=== PATIENT | female | born 1955 | race Two or more races ===

== ENCOUNTER 2016-08-11 12:12 | Observation (INO) | payer OTHER ==
[2016-08-11] MEDS ORDERED: cloNIDine HCL 0.1 MG TAB PO ONE ×2 (12:45→17:45)
[2016-08-11] MEDS: SODIUM CHLORIDE 0.9% 1,000 ML IV ONE ×2 (17:55→19:23)
[2016-08-11 20:00] LABS: Basophils # (auto) 0 uL; Basophils % (auto) 0.3 % (0.0-2.0); Eosinophils # (auto) 0.2 uL; Hemoglobin 14.8 g/dL (12.2-16.2); Lymphocytes # (auto) 2.4 uL; Lymphocytes % (auto) 19.7 % (10.0-50.0); Mean Corpuscular Hemoglobin 27.3 pg (28.0-32.0); Mean Corpuscular Hgb Conc. 33.5 g/dL (32.0-36.0); Mean Corpuscular Volume 81.3 fL (80.0-100.0); Mean Platelet Volume 9.6 fL (7.4-10.4); Monocytes # (auto) 0.5 uL; Monocytes % (auto) 4.4 % (0.0-12.0); Neutrophils # (auto) 8.8 uL; Neutrophils % (auto) 73.6 % (37.0-80.0); Platelet Count (auto) 253 10^3/uL (140-450); Red Cell Distribution Width 13.7 % (11.6-16.0)
[2016-08-11 20:07] LABS: Albumin 3.8 g/dL (3.4-5.0); Alkaline Phosphatase 87 U/L (45-117); Anion Gap 10 (5-15); Aspartate Aminotransferase 14 U/L (15-37); BUN/Creatinine Ratio 36.8; Bilirubin, Total 0.3 mg/dL (0.2-1.0); Blood Urea Nitrogen 25 mg/dL (7-18); Calcium 9.5 mg/dL (8.5-10.1); Carbon Dioxide 32 mmol/L (21-32); Chloride 98 mmol/L (98-107); GFR African American 113 mL/min; GFR Non-African American 93 mL/min; Glucose 190 mg/dL (74-106); Potassium 3.6 mmol/L (3.5-5.1); Sodium 140 mmol/L (136-145); Total Protein 7.9 g/dL (6.4-8.2)
[2016-08-11 20:27] VITALS: BP 132/59
== END 2016-08-11 20:41 | disposition home or self-care (01) | DRG 199 ==
LOC: EDUNIT# 12:12 → EDBD 12:12 → ER 12:15 → OVERFLOW 17:45 → ER 20:41
PROVIDERS: ADMIT Family Medicine; ATTEND Family Medicine
DX: I10 Essential (primary) hypertension (principal); E11.9 Type 2 diabetes mellitus without complications; R00.2 Palpitations; R51 Headache; Z98.890 Other specified postprocedural states; Z90.49 Acquired absence of other specified parts of digestive tract; Z90.710 Acquired absence of both cervix and uterus
CPT/HCPCS: 36415; 71020; 80053; 83735; 84443; 84484; 85025; 93005; 96360; 99285; G0378